=== PATIENT | male | born 1990 | race African-American/Black ===

== ENCOUNTER 2018-07-17 19:14 | Emergency (ER) | payer SELFPAY ==
[2018-07-17] MEDS ORDERED: Azithromycin 250 MG TAB ONE ×2 (21:22→21:26)
[2018-07-17] MEDS ORDERED: Lidocaine 1% PF 5 ML VIAL ONE (21:22)
[2018-07-17] MEDS ORDERED: cefTRIAXone\\ROCEPHIN 250 MG VIAL ONE (21:22)
[2018-07-20 01:45] LABS: Chlamydia by PCR Not Detected (NotDetected); GC by PCR DETECTED (NotDetected)
== END 2018-07-17 22:23 | disposition home or self-care (01) ==
LOC: ERS 19:14
DX: R36.9 Urethral discharge, unspecified (principal); Z20.2 Contact with and (suspected) exposure to infections with a predominantly sexual mode of transmission; B20 Human immunodeficiency virus [HIV] disease; F17.210 Nicotine dependence, cigarettes, uncomplicated
CPT/HCPCS: 87491; 87591; 96372; J0696; J2001

== ENCOUNTER 2018-12-29 11:08 | Emergency (ER) | payer SELFPAY ==
[2018-12-29] MEDS ORDERED: Lidocaine Viscous Sol 2% 15 ml UD Cup ONE (12:07)
== END 2018-12-29 12:38 | disposition home or self-care (01) ==
LOC: ERS 11:08
DX: K60.2 Anal fissure, unspecified (principal); I10 Essential (primary) hypertension; F17.210 Nicotine dependence, cigarettes, uncomplicated
CPT/HCPCS: 99283

== ENCOUNTER 2019-01-13 11:56 | Emergency (ER) | payer SELFPAY ==
[2019-01-13 13:00] LABS: #Lymphocytes 0.7 thou/uL (1.20-3.40); #Monocytes 0.7 thou/uL (0.11-0.59); #Neutrophils 3.8 thou/uL (1.40-6.50); %Basophils 0.2 % (0.0-1.0); %Eosinophils 0.9 % (0.0-10.0); %Lymphocytes 13.8 % (21.0-51.0); %Monocytes 13.6 % (0.0-10.0); %Neutrophils 71.6 % (42.0-75.0); Mean Corpuscular HGB CONC 34.3 g/dL (32.0-36.0); Mean Corpuscular Hemoglobin 25.8 pg (27.0-31.0); Mean Corpuscular Volume 75.3 fL (78.0-98.0); Mean Platelet Volume 8.4 fL (7.4-10.4); Platelet Count 209 thou/uL (130-400); RBC Distribution Width 11.8 % (11.5-14.5); Red Blood Cell (RBC) Count 4.66 mill/uL (4.70-6.10); White Blood Cell (WBC) Count 5.4 thou/uL (4.8-10.8)
[2019-01-13 13:33] LABS: ALT (SGPT) 9 U/L (8-55); AST (SGOT) 24 U/L (5-34); Alkaline Phosphatase 81 U/L (40-150); Anion Gap 12 mmol/L (10-20); BUN (Urea Nitrogen) 9 mg/dL (8.9-20.6); Bilirubin, Total 0.4 mg/dL (0.2-1.2); Calc. Creatinine Clearance 0 mL/min (70-130); Carbon Dioxide 25 mmol/L (22-29); Chloride 103 mmol/L (98-107); Estimated GFR-MDRD Greater than 90; Globulin 4.5 g/dL (2.4-3.5); Glucose 106 mg/dL (70-105); Potassium 3.8 mmol/L (3.5-5.1); Protein, Total 8.5 g/dL (6.0-8.3); Sodium 136 mmol/L (136-145)
[2019-01-13] MEDS ORDERED: HYDROcodone/Acetaminophen 5/325 mg Tablet ONE (13:34)
== END 2019-01-13 13:44 | disposition home or self-care (01) ==
LOC: ERS 11:56
DX: K64.4 Residual hemorrhoidal skin tags (principal); K92.2 Gastrointestinal hemorrhage, unspecified; I10 Essential (primary) hypertension; B20 Human immunodeficiency virus [HIV] disease; F17.210 Nicotine dependence, cigarettes, uncomplicated
CPT/HCPCS: 36415; 80053; 85025; 99283

== ENCOUNTER 2019-10-10 14:06 | Emergency (ER) | payer SELFPAY ==
[2019-10-10] MEDS ORDERED: cefTRIAXone\\ROCEPHIN 250 MG VIAL ONE (14:40)
[2019-10-10] MEDS ORDERED: Azithromycin 250 MG TAB ONE (14:45)
[2019-10-10 15:16] LABS: Bacteria/HPF None Seen HPF (None Seen); Bilirubin Negative (Negative); Blood, Urine 1+ (Negative); Clarity Turbid (Clear); Glucose, Urine (Dipstick) 50 mg/dL (Negative); Leukocyte 500 Leu/uL (Negative); Nitrite Negative (Negative); Protein, Urine (Dipstick) 30 mg/dL (Neg-Trace); Squamous Epithelial None Seen HPF (0-3); Urobilinogen Normal mg/dL (Less than 2); WBC/HPF Greater than 50 HPF (0-3)
[2019-10-13 23:07] LABS: Chlam.trachomatis by PCR,Urine Inconclusive (NotDetected)
== END 2019-10-10 15:17 | disposition home or self-care (01) ==
LOC: ERS 14:06
DX: N34.2 Other urethritis (principal); B20 Human immunodeficiency virus [HIV] disease; I10 Essential (primary) hypertension; F17.290 Nicotine dependence, other tobacco product, uncomplicated; Z79.899 Other long term (current) drug therapy
CPT/HCPCS: 81003; 81015; 87491; 87591; 96372; 99283; J0696

== ENCOUNTER 2019-11-18 14:09 | Emergency (ER) | payer SELFPAY ==
[2019-11-18] MEDS ORDERED: Acetaminophen 500 MG TAB ONE (15:38)
[2019-11-18] MEDS ORDERED: Ketorolac Tromethamine 30 MG/ML VIAL ONE (15:38)
--- NOTE | 2019-11-18 16:12 | RAD ---
Left hip 2 views HISTORY: Injury. FINDINGS: Joint spaces preserved. Femoral head contour is maintained. No acute fracture or dislocatio n. IMPRESSION : No acute osseous abnormalities are demonstrated
--- NOTE | 2019-11-18 16:13 | RAD ---
Left ankle 3 views HISTORY: Ankle injury. FINDINGS: Ankle mortise and talar dome are intact. No acute fracture or dislocation. Small bone within the distal tibia centrally. IMPRESSION : No acute osseous abnormalities are demonstrated.
== END 2019-11-18 16:37 | disposition home or self-care (01) ==
LOC: ERS 14:09
DX: S70.02XA Contusion of left hip, initial encounter (principal); I10 Essential (primary) hypertension; B20 Human immunodeficiency virus [HIV] disease; Z79.899 Other long term (current) drug therapy; W17.89XA Other fall from one level to another, initial encounter
CPT/HCPCS: 96372; J1885

== ENCOUNTER 2020-04-28 12:06 | Emergency (ER) | payer SELFPAY ==
[2020-04-29 10:26] LABS: SARS-CoV-2 MS2 Positive; SARS-CoV-2 N Gene Negative; SARS-CoV-2 S Gene Negative; SARS-CoV-2 by NAA Not Detected (NotDetected); SARS-CoV-2 orf1ab Negative
== END 2020-04-28 12:23 | disposition home or self-care (01) ==
LOC: ERS 12:06
DX: R05 Cough (principal); R10.9 Unspecified abdominal pain; R19.7 Diarrhea, unspecified; F17.200 Nicotine dependence, unspecified, uncomplicated
CPT/HCPCS: 87635; 99283; U0003

== ENCOUNTER 2020-11-08 13:56 | Emergency (ER) | payer OTHER, SELFPAY ==
[~2020-11-08 13:56] MED LIST: Iopamidol-370 76% 500 ML 1 ML ONE
[2020-11-08] MEDS ORDERED: Morphine 4 MG/ML VIAL ONE ×3 (14:58→17:50)
[2020-11-08] MEDS ORDERED: Ondansetron PF 4 MG/2 ML Vial ONE (14:58)
[2020-11-08] MEDS ORDERED: metroNIDAZOLE 500 MG/100 ML BAG ONE (16:41)
[2020-11-08] MEDS ORDERED: Cefepime 2 GM VIAL ONE (16:41)
[2020-11-08] MEDS ORDERED: Lidocaine 1% w/Epinephrine 1:100K 20 ML VIAL ONE (17:44)
[2020-11-08] MEDS ORDERED: Ketamine 50 MG/ML (10ML VIAL) ONE (18:21)
== END 2020-11-08 20:00 | disposition home or self-care (01) ==
LOC: ERS 13:56
DX: K61.1 Rectal abscess (principal); Z21 Asymptomatic human immunodeficiency virus [HIV] infection status; Z79.899 Other long term (current) drug therapy
CPT/HCPCS: 36415; 46040; 72193; 87040; 87070; 87077; 87186; 87205; 96365; 96367; 96375; 96376; 99152; 99153; J0692; J2270; J2405; Q9967

== ENCOUNTER 2021-10-11 14:38 | Inpatient (IN) | payer SELFPAY ==
[2021-10-11] MEDS ORDERED: Iopamidol-370 76% 500 ML 1 ML ONE (14:53)
[2021-10-11] MEDS ORDERED: Morphine 4 MG/ML VIAL ONE ×2 (15:21→16:19)
[2021-10-11] MEDS ORDERED: Ondansetron PF 4 MG/2 ML Vial ONE (15:21)
[2021-10-11 15:34] LABS: Hemoglobin 12.3 g/dL (14.0-18.0); Mean Corpuscular HGB CONC 34.7 g/dL (32.0-36.0); Mean Corpuscular Hemoglobin 27.3 pg (27.0-31.0); Mean Corpuscular Volume 78.7 fL (78.0-98.0); Mean Platelet Volume 8.8 fL (7.4-10.4); Platelet Count 189 thou/uL (130-400); RBC Distribution Width 11.8 % (11.5-14.5); Red Blood Cell (RBC) Count 4.49 mill/uL (4.70-6.10); White Blood Cell (WBC) Count 3.4 thou/uL (4.8-10.8)
[2021-10-11 15:56] LABS: Band 2 % (5-11); Eosinophils 1 % (0-10); Lymphocytes 49 % (21-51); MDiff Complete? YES; Monocytes 12 % (0-10); Neutrophil 34 % (42-75); Platelet Morphology Comment Appears Adequate; Polychromasia SLIGHT = 2-3 cells (100X) (0-2/hpf); Reactive Lymphocytes 1 % (0-10); Target Cells SLIGHT = 2-5 cells (100X) (0-1/hpf)
[2021-10-11 15:58] LABS: ALT (SGPT) 18 U/L (8-55); AST (SGOT) 33 U/L (5-34); Albumin 4.1 g/dL (3.5-5.0); Alkaline Phosphatase 86 U/L (40-110); Anion Gap 14 mmol/L (10-20); BUN (Urea Nitrogen) 11 mg/dL (8.9-20.6); Bilirubin, Total 0.3 mg/dL (0.2-1.2); Calc. Creatinine Clearance 0 mL/min (70-130); Calcium 9.3 mg/dL (7.8-10.44); Carbon Dioxide 23 mmol/L (22-29); Chloride 107 mmol/L (98-107); Globulin 4.8 g/dL (2.4-3.5); Glucose 100 mg/dL (70-105); Potassium 3.7 mmol/L (3.5-5.1); Protein, Total 8.9 g/dL (6.0-8.3); Sodium 140 mmol/L (136-145)
[2021-10-11] MEDS ORDERED: Acetaminophen 325 MG TAB PO PRN (17:15)
[2021-10-11] MEDS ORDERED: Acetaminophen 650 MG Suppository PR PRN (17:15)
[2021-10-11] MEDS ORDERED: metroNIDAZOLE 500 MG in Premix Bag 1 BAG IVPB SCH (17:30)
[2021-10-11] MEDS ORDERED: Ondansetron ODT 4 MG TAB PO PRN (17:54)
[2021-10-11] MEDS ORDERED: hydrALAZINE 20 MG/ML VIAL SLOW IVP PRN (17:54)
[2021-10-11 18:39] VITALS: BMI 23.6
[2021-10-11] MEDS: Ondansetron PF 4 MG/2 ML Vial IVP PRN (19:32)
[2021-10-11] MEDS: Acyclovir Sodium 800 MG in Sodium Chloride 0.9% 250 ML 250 ML IVPB SCH (21:05)
[2021-10-11] MEDS: Morphine 4 MG/ML VIAL SLOW IVP PRN (22:00)
[2021-10-11] MEDS ORDERED: Pantoprazole 40 MG VIAL IVP SCH (23:30)
[2021-10-11 23:37] LABS: Hemoglobin 8.4 g/dL (14.0-18.0); Platelet Count 134 thou/uL (130-400)
[2021-10-12] MEDS: Ondansetron PF 4 MG/2 ML Vial IVP PRN ×3 (01:53→18:16)
[2021-10-12] MEDS: Morphine 4 MG/ML VIAL SLOW IVP PRN ×3 (01:53→18:12)
[2021-10-12] MEDS: Acyclovir Sodium 800 MG in Sodium Chloride 0.9% 250 ML 250 ML IVPB SCH ×2 (05:19→14:25)
[2021-10-12] MEDS: Pantoprazole 40 MG VIAL IVP SCH ×2 (08:23→20:58)
[2021-10-12 08:52] LABS: ALT (SGPT) 12 U/L (8-55); AST (SGOT) 24 U/L (5-34); Albumin 3.2 g/dL (3.5-5.0); Alkaline Phosphatase 63 U/L (40-110); Anion Gap 10 mmol/L (10-20); BUN (Urea Nitrogen) 8 mg/dL (8.9-20.6); Bilirubin, Total 0.3 mg/dL (0.2-1.2); Calc. Creatinine Clearance 126 mL/min (70-130); Calcium 8.2 mg/dL (7.8-10.44); Carbon Dioxide 25 mmol/L (22-29); Chloride 106 mmol/L (98-107); Globulin 3.4 g/dL (2.4-3.5); Glucose 88 mg/dL (70-105); Potassium 3.4 mmol/L (3.5-5.1); Protein, Total 6.6 g/dL (6.0-8.3); Sodium 138 mmol/L (136-145)
[2021-10-12] MEDS ORDERED: Enoxaparin Sodium 40 MG/0.4 ML SYRINGE SC SCH (09:00)
[2021-10-12 09:22] LABS: Hemoglobin 9.5 g/dL (14.0-18.0); RBC Distribution Width 12.2 % (11.5-14.5); White Blood Cell (WBC) Count 2.6 thou/uL (4.8-10.8)
[2021-10-12 09:59] LABS: MDiff Complete? YES; Mean Platelet Volume 9.1 fL (7.4-10.4); Platelet Count 131 thou/uL (130-400)
[2021-10-12 10:00] LABS: Lymphocytes 29 % (21-51); Monocytes 9 % (0-10); Neutrophil 62 % (42-75); Platelet Morphology Comment Appears Adequate
[2021-10-12] MEDS: HYDROcodone/Acetaminophen 5/325 mg Tablet PO PRN ×2 (11:37→21:11)
[2021-10-12 14:02] LABS: SARS-CoV-2 NAA Rapid Test Not Detected (NotDetected)
[2021-10-12] MEDS ORDERED: PROPOFOL 200 MG/20 ML VIAL ONE (16:05)
[2021-10-12] MEDS ORDERED: Ondansetron HCl/PF 4 MG/2 ML Vial IVP PRN (16:11)
[2021-10-12] MEDS ORDERED: Promethazine HCl 25 MG/ML VIAL IM PRN (16:11)
[2021-10-12] MEDS ORDERED: Promethazine HCl 25 MG/ML VIAL IVPB PRN (16:11)
[2021-10-12] MEDS ORDERED: Fentanyl 100 MCG/2 ML VIAL ONE (17:23)
[2021-10-12] MEDS ORDERED: Polyethylene Glycol 3350 17 GM Packet PO SCH (17:39)
[2021-10-12] MEDS: Melatonin 3 MG TAB PO PRN (23:49)
[2021-10-13] MEDS: HYDROcodone/Acetaminophen 5/325 mg Tablet PO PRN ×5 (01:38→21:18)
[2021-10-13 06:48] LABS: Platelet Count 134 thou/uL (130-400)
[2021-10-13 07:08] LABS: Anion Gap 12 mmol/L (10-20); BUN (Urea Nitrogen) 8 mg/dL (8.9-20.6); Calc. Creatinine Clearance 117 mL/min (70-130); Calcium 8.4 mg/dL (7.8-10.44); Carbon Dioxide 24 mmol/L (22-29); Chloride 107 mmol/L (98-107); Glucose 86 mg/dL (70-105); Potassium 3.8 mmol/L (3.5-5.1); Sodium 139 mmol/L (136-145)
[2021-10-13] MEDS: Acyclovir Sodium 800 MG in Sodium Chloride 0.9% 250 ML 250 ML IVPB SCH ×4 (09:13→17:50)
[2021-10-13] MEDS: Polyethylene Glycol 3350 17 GM Packet PO SCH (09:15)
[2021-10-13] MEDS: Pantoprazole 40 MG VIAL IVP SCH (09:16)
[2021-10-13] MEDS: Ondansetron PF 4 MG/2 ML Vial IVP PRN (17:57)
[2021-10-13] MEDS: Melatonin 3 MG TAB PO PRN (21:18)
[2021-10-14] MEDS: Acyclovir Sodium 800 MG in Sodium Chloride 0.9% 250 ML 250 ML IVPB SCH ×2 (01:28→09:45)
[2021-10-14 06:49] LABS: Hemoglobin 9.2 g/dL (14.0-18.0)
[2021-10-14] MEDS: Polyethylene Glycol 3350 17 GM Packet PO SCH (08:07)
[2021-10-14 10:44] VITALS: BP 185/95; TEMP 98.6
[2021-10-14 16:17] LABS: %CD4 (Helper/Inducer) 6.3 % (30.8-58.5); Absolute CD4 50 /uL (359-1519); Lymphocytes/Gated Cell Count 0.8 x10E3/uL (0.7-3.1); Total Lymphocyte 21 % (Not Estab.); WBC Total Count 3.6 x10E3/uL (3.4-10.8)
== END 2021-10-14 10:49 | disposition home or self-care (01) | DRG 394 ==
LOC: ERS 14:38 → T4-B 17:23
PROVIDERS: ADMIT Family Medicine; ATTEND Family Medicine
PROC: 30233N1 Transfusion of Nonautologous Red Blood Cells into Peripheral Vein, Percutaneous Approach (ICD-10-PCS; principal; 2021-10-11)
PROC: 0DJD8ZZ Inspection of Lower Intestinal Tract, Via Natural or Artificial Opening Endoscopic (ICD-10-PCS; 2021-10-12)
DX: K64.8 Other hemorrhoids (principal); D62 Acute posthemorrhagic anemia; Z20.822 Contact with and (suspected) exposure to COVID-19; Z21 Asymptomatic human immunodeficiency virus [HIV] infection status; I10 Essential (primary) hypertension; B02.9 Zoster without complications; D72.819 Decreased white blood cell count, unspecified; F90.9 Attention-deficit hyperactivity disorder, unspecified type; F12.10 Cannabis abuse, uncomplicated; Z88.2 Allergy status to sulfonamides; Z88.6 Allergy status to analgesic agent; Z88.8 Allergy status to other drugs, medicaments and biological substances
CPT/HCPCS: 36415; 36430; 74177; 80048; 80053; 85014; 85018; 85025; 85048; 85049; 86361; 86850; 86900; 86901; 86921; 86922; 93005; C9113; J0133; J1956; J2270; J2405; J2704; J3010; J7050; P9016; Q0162; Q9967; U0002; U0003; U0005

== ENCOUNTER 2022-08-26 10:05 | Emergency (ER) | payer SELFPAY | END 2022-08-26 12:08 | disposition home or self-care (01) | LOC: ERS 10:05 | DX: K61.1 Rectal abscess (principal) | CPT/HCPCS: 99283 ==

== ENCOUNTER 2023-10-13 17:08 | Emergency (ER) | payer SELFPAY ==
[2023-10-13] MEDS ORDERED: Ketorolac Tromethamine 30 MG (1 mL) VIAL ONE (17:54)
[2023-10-13] MEDS ORDERED: HYDROcodone/Acetaminophen 10/325 mg Tablet ONE (17:55)
[2023-10-13] MEDS ORDERED: LORazepam 2 MG/ML SYR.(CARPUJECT) ONE (17:57)
== END 2023-10-13 18:49 | disposition home or self-care (01) ==
LOC: ERS 17:08
DX: S16.1XXA Strain of muscle, fascia and tendon at neck level, initial encounter (principal); S39.012A Strain of muscle, fascia and tendon of lower back, initial encounter; I10 Essential (primary) hypertension; V89.2XXA Person injured in unspecified motor-vehicle accident, traffic, initial encounter
CPT/HCPCS: 96372; 99283; J1885; J2060

== ENCOUNTER 2023-12-22 19:43 | Emergency (ER) | payer SELFPAY ==
[2023-12-22 20:48] LABS: #Basophils 0.03 10x3/uL (0.0-0.2); %Basophils 0.6 % (0.0-1.0); %Eosinophils 1.7 % (0.0-10.0); %Lymphocytes 23.9 % (21.0-51.0); %Monocytes 9.7 % (0.0-10.0); %Neutrophils 63.5 % (42.0-75.0); Hematocrit 24.8 % (42.0-52.0); Hemoglobin 8.6 g/dL (14.0-18.0); Mean Corpuscular HGB CONC 34.7 g/dL (32.0-36.0); Mean Corpuscular Hemoglobin 26.6 pg (27.0-31.0); Mean Corpuscular Volume 76.8 fL (78.0-98.0); Platelet Count 311 10x3/uL (130-400); RBC Distribution Width 13.7 % (11.5-14.5); Red Blood Cell (RBC) Count 3.23 mill/uL (4.70-6.10)
[2023-12-22 21:03] LABS: ALT (SGPT) 7 U/L (8-55); AST (SGOT) 13 U/L (5-34); Albumin 2.8 g/dL (3.5-5.0); Alkaline Phosphatase 81 U/L (40-110); Anion Gap 13 mmol/L (10-20); BUN (Urea Nitrogen) 11 mg/dL (8.9-20.6); Bilirubin, Total 0.3 mg/dL (0.2-1.2); Calc. Creatinine Clearance 0 mL/min (70-130); Calcium 9.3 mg/dL (7.8-10.44); Carbon Dioxide 23 mmol/L (22-29); Chloride 107 mmol/L (98-107); Estimated GFR 88; Globulin 4.9 g/dL (2.4-3.5); Glucose 101 mg/dL (70-105); Potassium 3.8 mmol/L (3.5-5.1); Protein, Total 7.7 g/dL (6.0-8.3); Sodium 139 mmol/L (136-145)
== END 2023-12-22 22:20 | disposition home or self-care (01) ==
LOC: ERS 19:43
DX: K62.5 Hemorrhage of anus and rectum (principal); D64.9 Anemia, unspecified; I10 Essential (primary) hypertension; B20 Human immunodeficiency virus [HIV] disease; F17.210 Nicotine dependence, cigarettes, uncomplicated; Z79.899 Other long term (current) drug therapy
CPT/HCPCS: 80053; 85025; 99283